=== PATIENT | female | born 1970 | race Caucasian/White ===

== ENCOUNTER 2019-08-27 10:28 | Inpatient (IN) ==
[2019-08-27] MEDS ORDERED: CeFAZolin Syr 2,000MG/20 ML 2,000 MG/20 ML SYRINGE IVPB ONE (10:48)
[2019-08-27] MEDS ORDERED: Ringers Solution, Lactated 1,000 ML IVC SCH ×2 (11:00→17:24)
[2019-08-27] MEDS ORDERED: *HR* Labetalol 20 MG/4 ML SYRINGE IVP PRN (11:06)
[2019-08-27] MEDS ORDERED: *HR* HYDROmorphone PF 0.5 MG/0.5 ML SYRINGE IVP PRN (11:06)
[2019-08-27] MEDS ORDERED: Ondansetron 4 MG/2 ML VIAL IVP PRN ×2 (11:06→17:24)
[2019-08-27] MEDS ORDERED: Famotidine 20 MG/2 ML VIAL IVP ONE (13:15)
[2019-08-27] MEDS ORDERED: Celecoxib 200 MG CAPSULE PO ONE (13:15)
[2019-08-27] MEDS ORDERED: *HR* OxyCODONE ER (12 HR) 10 MG TABLET PO ONE (13:15)
[2019-08-27] MEDS ORDERED: Ethanol\\Acetic Acid\\Na Ace\\Ben 1,000 ML IRRIG.SOLN IR ONE ×2 (13:20→13:28)
[2019-08-27] MEDS ORDERED: Vancomycin 1,000 MG VIAL ONE (13:20)
[2019-08-27] MEDS ORDERED: *HR* FentaNYL (PF) 100 MCG/2 ML VIAL ONE (13:57)
[2019-08-27] MEDS ORDERED: *HR* Midazolam HCl 2 MG/2 ML VIAL ONE (13:57)
[2019-08-27] MEDS ORDERED: Lidocaine -MPF 2% 2 ML VIAL ONE (14:27)
[2019-08-27] MEDS ORDERED: *HR* Propofol 200 MG/20 ML VIAL IVP ONE (14:27)
[2019-08-27] MEDS ORDERED: Lidocaine -MPF 4% 5 ML AMPUL ONE (14:27)
[2019-08-27] MEDS ORDERED: EPHEDrine 50 MG/ML VIAL ONE (14:38)
[2019-08-27] MEDS ORDERED: Dexamethasone 4 MG/ML VIAL ONE (14:39)
[2019-08-27] MEDS ORDERED: Ondansetron 4 MG/2 ML VIAL ONE (14:39)
[2019-08-27] MEDS ORDERED: *HR* PHENYLEPHRINE 1,000 MCG/10 ML SYRINGE IVP ONE (14:50)
[2019-08-27] MEDS ORDERED: Total Joint Mixture (50 ml) INTRAART ONE (15:15)
[2019-08-27] MEDS ORDERED: Naloxone 0.4 MG/ML INJ IVP PRN (17:24)
[2019-08-27] MEDS ORDERED: Sennosides 8.6 MG TABLET PO PRN (17:24)
[2019-08-27] MEDS ORDERED: MOM Conc 10 ML UD.LIQ PO PRN (17:24)
[2019-08-27] MEDS ORDERED: SUMAtriptan succinate 25 MG TABLET PO PRN (17:24)
[2019-08-27] MEDS ORDERED: D5% in Water 1,000 ML IVC PRN (17:24)
[2019-08-27] MEDS ORDERED: *HR* Promethazine 25 MG/ML VIAL IVP PRN (17:24)
[2019-08-27] MEDS ORDERED: *HR* Dextrose 50 % in Water (Vial) 50 ML VIAL IVP PRN (17:24)
[2019-08-27] MEDS ORDERED: Dextrose Gel 15 GM/37.5 ML TUBE PO PRN ×2 (17:24)
[2019-08-27 17:34] LABS: Hematocrit 41.7 % (35.3-44.9); Hemoglobin 13.1 g/dL (11.5-15.4)
[2019-08-27] MEDS: Ascorbic Acid 500 MG TABLET PO SCH (18:49)
[2019-08-27] MEDS: *HR* OxyCODONE Immed Rel 5 MG TABLET PO PRN (18:50)
[2019-08-27] MEDS: Insulin LISPRO 300 UNITS/3 ML VIAL SQ SCH ×2 (18:56→21:14)
[2019-08-27] MEDS: HYDROcodone BIT/Homatropine 5 MG TABLET PO PRN (21:12)
[2019-08-27] MEDS: lamoTRIgine 100 MG TABLET PO SCH (21:13)
[2019-08-27] MEDS: CeFAZolin 2 GM/120 ML BAG IVPB SCH (21:13)
[2019-08-28] MEDS: CeFAZolin 2 GM/120 ML BAG IVPB SCH (05:45)
[2019-08-28] MEDS: *HR* OxyCODONE Immed Rel 5 MG TABLET PO PRN ×2 (05:45→20:55)
[2019-08-28 06:53] LABS: Basophils % 0.3 %; Hematocrit 38.5 % (35.3-44.9); Hemoglobin 11.9 g/dL (11.5-15.4); Immature Granulocytes % 0.4 % (0-4); Lymphocytes # 0.6 K/mcL (0.6-4.6); Lymphocytes % 3.8 %; Mean Corpuscular HGB Conc 30.9 g/dL (31.6-35.5); Mean Corpuscular Hemoglobin 30.2 pg (28.0-33.3); Mean Corpuscular Volume 97.7 fL (83.0-100.0); Mean Platelet Volume 10.3 fL (9.4-12.4); Monocytes # 0.9 K/mcL (0.0-1.3); Monocytes % 5.5 %; Neutrophils # 14.3 K/mcL (1.6-8.9); Platelet Count 225 K/mcL (140-400); Red Blood Count 3.94 M/mcL (3.82-4.97); White Blood Count 15.9 K/mcL (4.3-11.1)
[2019-08-28 07:13] LABS: BUN/Creatinine Ratio 18 (6-26); Blood Urea Nitrogen 13 mg/dL (6-20); Calcium 8.7 mg/dL (8.6-10.3); Carbon Dioxide 26 mEq/L (23-29); Chloride 102 mEq/L (98-107); Glucose 129 mg/dL (70-105); Osmolality,Calculated 280 (280-300); Potassium 4.3 mEq/L (3.5-5.1); Sodium 134 mEq/L (136-145); eGFR For African Americans > 60 (> 60); eGFR For Non-African Americans > 60 (> 60)
[2019-08-28] MEDS: lamoTRIgine 100 MG TABLET PO SCH ×2 (08:21→20:55)
[2019-08-28] MEDS: Ascorbic Acid 500 MG TABLET PO SCH ×2 (08:21→16:14)
[2019-08-28] MEDS: Multivit/Ca/Min/Fe/FA 1 TAB TABLET PO SCH (08:23)
[2019-08-28] MEDS: Aspirin Enteric Coated 81 MG Tablet PO SCH (08:24)
[2019-08-28] MEDS: Furosemide 20 MG TABLET PO SCH (08:24)
[2019-08-28] MEDS: Loratadine 10 MG TABLET PO SCH (08:25)
[2019-08-28] MEDS: FLUoxetine HCl 10 MG CAPSULE PO SCH (08:27)
[2019-08-28] MEDS: Mirabegron [Myrbetriq] 50 MG PO SCH (08:31)
[2019-08-28] MEDS: Armodafinil [Nuvigil] 200 MG PO SCH (08:31)
[2019-08-28] MEDS: Insulin LISPRO 300 UNITS/3 ML VIAL SQ SCH ×4 (08:39→20:51)
[2019-08-28] MEDS ORDERED: Aspirin Enteric Coated 81 MG Tablet PO SCH (09:00)
[2019-08-28] MEDS: Valbenazine Tosylate [Ingrezza] 80 MG PO SCH (11:40)
[2019-08-28] MEDS: HYDROcodone BIT/Homatropine 5 MG TABLET PO PRN ×2 (11:44→16:15)
[2019-08-28] MEDS: Vortioxetine Hydrobromide [Trintellix] 20 MG PO SCH (12:01)
[2019-08-29] MEDS: *HR* OxyCODONE Immed Rel 5 MG TABLET PO PRN ×3 (03:07→17:01)
[2019-08-29 07:03] LABS: Basophils # 0.1 K/mcL (0.0-0.2); Basophils % 0.8 %; Eosinophils # 0.1 K/mcL (0.0-0.6); Eosinophils % 1.6 %; Hematocrit 34.2 % (35.3-44.9); Hemoglobin 10.7 g/dL (11.5-15.4); Immature Granulocytes % 1.7 % (0-4); Lymphocytes # 1.4 K/mcL (0.6-4.6); Lymphocytes % 15.2 %; Mean Corpuscular HGB Conc 31.3 g/dL (31.6-35.5); Mean Corpuscular Hemoglobin 30.1 pg (28.0-33.3); Mean Corpuscular Volume 96.1 fL (83.0-100.0); Mean Platelet Volume 10.2 fL (9.4-12.4); Monocytes # 0.9 K/mcL (0.0-1.3); Monocytes % 10.2 %; Neutrophils # 6.4 K/mcL (1.6-8.9); Platelet Count 183 K/mcL (140-400); Red Blood Count 3.56 M/mcL (3.82-4.97); Red Cell Distribution Width 14.3 % (11.5-14.5); Segmented Neutrophils % 70.5 %
[2019-08-29 07:28] LABS: BUN/Creatinine Ratio 16 (6-26); Blood Urea Nitrogen 11 mg/dL (6-20); Calcium 8.7 mg/dL (8.6-10.3); Carbon Dioxide 26 mEq/L (23-29); Chloride 104 mEq/L (98-107); Glucose 107 mg/dL (70-105); Osmolality,Calculated 282 (280-300); Potassium 3.7 mEq/L (3.5-5.1); Sodium 136 mEq/L (136-145); eGFR For African Americans > 60 (> 60); eGFR For Non-African Americans > 60 (> 60)
[2019-08-29] MEDS: Insulin LISPRO 300 UNITS/3 ML VIAL SQ SCH ×4 (08:08→20:35)
[2019-08-29] MEDS: Aspirin Enteric Coated 81 MG Tablet PO SCH (08:24)
[2019-08-29] MEDS: Ascorbic Acid 500 MG TABLET PO SCH ×2 (08:24→16:06)
[2019-08-29] MEDS: lamoTRIgine 100 MG TABLET PO SCH ×2 (08:26→20:17)
[2019-08-29] MEDS: Multivit/Ca/Min/Fe/FA 1 TAB TABLET PO SCH (08:27)
[2019-08-29] MEDS: Armodafinil [Nuvigil] 200 MG PO SCH (08:28)
[2019-08-29] MEDS: Furosemide 20 MG TABLET PO SCH (08:28)
[2019-08-29] MEDS: Loratadine 10 MG TABLET PO SCH (08:28)
[2019-08-29] MEDS: Mirabegron [Myrbetriq] 50 MG PO SCH (08:28)
[2019-08-29] MEDS: FLUoxetine HCl 10 MG CAPSULE PO SCH (08:28)
[2019-08-29] MEDS: Valbenazine Tosylate [Ingrezza] 80 MG PO SCH (08:29)
[2019-08-29] MEDS: Vortioxetine Hydrobromide [Trintellix] 20 MG PO SCH (08:29)
[2019-08-29] MEDS: HYDROcodone BIT/Homatropine 5 MG TABLET PO PRN ×2 (10:36→20:16)
[2019-08-29 18:51] VITALS: BP 112/63
== END 2019-08-29 22:15 | DRG 468 ==
LOC: SAMDAY 10:28 → 3NENU 10:28 → OBSVTOIN 08-28 14:45
PROVIDERS: ADMIT Orthopaedic Surgery; ATTEND Orthopaedic Surgery

== ENCOUNTER 2020-03-13 14:44 | Inpatient (IN) ==
[2020-03-13] MEDS ORDERED: Ondansetron 4 MG/2 ML VIAL IVP PRN (18:26)
[2020-03-13] MEDS ORDERED: Naloxone 0.4 MG/ML INJ IVP PRN (18:26)
[2020-03-13] MEDS ORDERED: Acetaminophen 325 MG TABLET PO PRN (18:26)
[2020-03-13] MEDS ORDERED: *HR* HYDROcodone/Acet 5/325 mg TABLET PO PRN (20:15)
[2020-03-13] MEDS: tiZANidine 4 MG TABLET PO SCH (21:48)
[2020-03-13] MEDS: lamoTRIgine 100 MG TABLET PO SCH (21:48)
[2020-03-14 03:38] LABS: Basophils # 0.1 K/mcL (0.0-0.2); Basophils % 1.5 %; Hematocrit 27.4 % (35.3-44.9); Hemoglobin 8.8 g/dL (11.5-15.4); Immature Granulocytes % 7.9 % (0-4); Lymphocytes # 0.5 K/mcL (0.6-4.6); Lymphocytes % 16.4 %; Mean Corpuscular HGB Conc 32.1 g/dL (31.6-35.5); Mean Corpuscular Hemoglobin 34.4 pg (28.0-33.3); Mean Platelet Volume 9.5 fL (9.4-12.4); Monocytes # 0.3 K/mcL (0.0-1.3); Monocytes % 8.2 %; Neutrophils # 2.2 K/mcL (1.6-8.9); Nucleated Red Blood Cells 1.5 /100 WBC (0); Platelet Count 137 K/mcL (140-400); Red Blood Count 2.56 M/mcL (3.82-4.97); Red Cell Distribution Width 15.9 % (11.5-14.5); White Blood Count 3.3 K/mcL (4.3-11.1)
[2020-03-14 04:11] LABS: BUN/Creatinine Ratio 38 (6-26); Blood Urea Nitrogen 13 mg/dL (6-20); Calcium 8.5 mg/dL (8.6-10.3); Carbon Dioxide 26 mEq/L (23-29); Chloride 98 mEq/L (98-107); Glucose 84 mg/dL (70-105); Magnesium 1.8 mg/dL (1.6-2.6); Osmolality,Calculated 277 (280-300); Potassium 4.3 mEq/L (3.5-5.1); Sodium 134 mEq/L (136-145); eGFR For African Americans > 60 (> 60); eGFR For Non-African Americans > 60 (> 60)
[2020-03-14 04:13] LABS: Platelet Estimate Slight Decrease (Normal); Smudge Cells Present (Not Present)
[2020-03-14] MEDS: FLUoxetine 20 MG CAPSULE PO SCH (09:06)
[2020-03-14] MEDS: lamoTRIgine 100 MG TABLET PO SCH ×2 (09:07→22:32)
[2020-03-14] MEDS: tiZANidine 4 MG TABLET PO SCH ×3 (09:07→22:33)
[2020-03-14] MEDS: Furosemide 20 MG TABLET PO SCH (09:07)
[2020-03-14] MEDS: ARMODAFINIL 150 MG PO SCH (09:10)
[2020-03-14] MEDS: (Valbenazine Tosylate [Ingrezza] 80 MG) PO SCH (09:10)
[2020-03-14] MEDS ORDERED: Gadolinium Contrast Agent (WT Based) IV PRN (10:11)
[2020-03-14] MEDS: Cyanocobalamin (B-12) 1,000 MCG/ML VIAL IM SCH (10:52)
[2020-03-14 14:30] LABS: Red Blood Cell,CSF < 2000 RBC/mcL
[2020-03-14 14:31] LABS: Appearance,CSF Clear (Clear)
[2020-03-14 15:02] LABS: Glucose,CSF 53 mg/dL (40-70); Total Protein,CSF 55 mg/dL (15-45)
[2020-03-14] MEDS ORDERED: IVIG (wt based) Privigen 5 GM/50 ML INFUS..BTL IVC ONE (15:34)
[2020-03-14] MEDS ORDERED: Immune Glob, Gamma (Gammagard) 10 GM/100 ML INFUS..BTL IVC ONE (15:45)
[2020-03-14] MEDS ORDERED: Immune Glob, Gamma (Gammagard) 5 GM/50 ML INFUS..BTL IVC ONE (15:45)
[2020-03-14] MEDS ORDERED: Immune Glob, Gamma (Gammagard) 20 GM/200 ML INFUS..BTL IVC ONE (15:45)
[2020-03-14] MEDS: Immune Glob, Gamma (Gammagard) 5 GM/50 ML INFUS..BTL IVC SCH (17:19)
[2020-03-14] MEDS: Immune Glob, Gamma (Gammagard) 10 GM/100 ML INFUS..BTL IVC SCH (17:45)
[2020-03-14] MEDS: Immune Glob, Gamma (Gammagard) 20 GM/200 ML INFUS..BTL IVC SCH (18:09)
[2020-03-14] MEDS ORDERED: Furosemide 40 MG/4 ML VIAL IVP ONE (20:57)
[2020-03-15 07:24] LABS: Basophils # 0.1 K/mcL (0.0-0.2); Eosinophils % 0.3 %; Hemoglobin 8.5 g/dL (11.5-15.4); Lymphocytes # 0.6 K/mcL (0.6-4.6); Lymphocytes % 19.7 %; Mean Corpuscular HGB Conc 31.5 g/dL (31.6-35.5); Mean Corpuscular Hemoglobin 33.2 pg (28.0-33.3); Mean Corpuscular Volume 105.5 fL (83.0-100.0); Mean Platelet Volume 9.3 fL (9.4-12.4); Monocytes # 0.2 K/mcL (0.0-1.3); Monocytes % 5.7 %; Neutrophils # 1.9 K/mcL (1.6-8.9); Nucleated Red Blood Cells 1.7 /100 WBC (0); Platelet Count 134 K/mcL (140-400); Red Blood Count 2.56 M/mcL (3.82-4.97); Segmented Neutrophils % 62.3 %
[2020-03-15 07:43] LABS: % Iron Saturation 32 % (15-50); BUN/Creatinine Ratio 45 (6-26); Blood Urea Nitrogen 14 mg/dL (6-20); Calcium 8.3 mg/dL (8.6-10.3); Carbon Dioxide 26 mEq/L (23-29); Chloride 98 mEq/L (98-107); Glucose 82 mg/dL (70-105); Iron 40 mcg/dL (50-170); Magnesium 1.7 mg/dL (1.6-2.6); Osmolality,Calculated 280 (280-300); Potassium 3.5 mEq/L (3.5-5.1); Sodium 135 mEq/L (136-145); Transferrin 88 mg/dL (203-362); eGFR For African Americans > 60 (> 60); eGFR For Non-African Americans > 60 (> 60)
[2020-03-15 07:53] LABS: Thyroid Stimulating Hormone 10.281 mcIU/mL (0.340-5.600)
[2020-03-15 07:59] LABS: Ferritin 1055 ng/mL (10-120)
[2020-03-15 08:08] LABS: Platelet Estimate Normal (Normal); Toxic Granulation Present (Not Present)
[2020-03-15 08:48] LABS: Vitamin B12 > 1500 pg/mL (250-1100)
[2020-03-15] MEDS: tiZANidine 4 MG TABLET PO SCH (10:15)
[2020-03-15] MEDS: Furosemide 20 MG TABLET PO SCH (10:16)
[2020-03-15] MEDS: lamoTRIgine 100 MG TABLET PO SCH ×2 (10:16→20:17)
[2020-03-15] MEDS: FLUoxetine 20 MG CAPSULE PO SCH (10:16)
[2020-03-15] MEDS: Cyanocobalamin (B-12) 1,000 MCG/ML VIAL IM SCH (10:17)
[2020-03-15] MEDS: (Valbenazine Tosylate [Ingrezza] 80 MG) PO SCH (11:11)
[2020-03-15] MEDS: ARMODAFINIL 150 MG PO SCH (11:11)
[2020-03-15] MEDS ORDERED: 0.9 % Sodium Chloride 1,000 ML IVC ONE (16:12)
[2020-03-15] MEDS: Immune Glob, Gamma (Gammagard) 20 GM/200 ML INFUS..BTL IVC SCH (17:48)
[2020-03-15] MEDS: Immune Glob, Gamma (Gammagard) 10 GM/100 ML INFUS..BTL IVC SCH (19:55)
[2020-03-15] MEDS: Sennosides/Docusate Sodium TABLET PO SCH (20:17)
[2020-03-15] MEDS: Immune Glob, Gamma (Gammagard) 5 GM/50 ML INFUS..BTL IVC SCH (20:55)
[2020-03-15] MEDS: Folic Acid 1 MG TABLET PO SCH (21:02)
[2020-03-16 01:45] LABS: Basophils # 0.1 K/mcL (0.0-0.2); Basophils % 1.7 %; Eosinophils % 0.3 %; Hematocrit 26.6 % (35.3-44.9); Hemoglobin 8.6 g/dL (11.5-15.4); Immature Granulocytes % 9.3 % (0-4); Lymphocytes # 0.5 K/mcL (0.6-4.6); Lymphocytes % 13.6 %; Mean Corpuscular HGB Conc 32.3 g/dL (31.6-35.5); Mean Corpuscular Hemoglobin 34.1 pg (28.0-33.3); Mean Corpuscular Volume 105.6 fL (83.0-100.0); Mean Platelet Volume 9.5 fL (9.4-12.4); Monocytes # 0.2 K/mcL (0.0-1.3); Monocytes % 5.8 %; Neutrophils # 2.4 K/mcL (1.6-8.9); Nucleated Red Blood Cells 1.2 /100 WBC (0); Platelet Count 143 K/mcL (140-400); Red Blood Count 2.52 M/mcL (3.82-4.97); Red Cell Distribution Width 15.9 % (11.5-14.5); Segmented Neutrophils % 69.3 %; White Blood Count 3.5 K/mcL (4.3-11.1)
[2020-03-16 02:03] LABS: BUN/Creatinine Ratio 52 (6-26); Blood Urea Nitrogen 15 mg/dL (6-20); Calcium 8.2 mg/dL (8.6-10.3); Carbon Dioxide 24 mEq/L (23-29); Chloride 96 mEq/L (98-107); Glucose 69 mg/dL (70-105); Magnesium 1.5 mg/dL (1.6-2.6); Osmolality,Calculated 273 (280-300); Potassium 3.7 mEq/L (3.5-5.1); Sodium 132 mEq/L (136-145); eGFR For African Americans > 60 (> 60); eGFR For Non-African Americans > 60 (> 60)
[2020-03-16 02:18] LABS: Triiodothyronine (T3) Free 2.16 pg/mL (2.50-3.90)
[2020-03-16 03:18] LABS: Platelet Estimate Normal (Normal)
[2020-03-16] MEDS: Ondansetron 4 MG/2 ML VIAL IVP PRN ×3 (04:16→23:05)
[2020-03-16] MEDS ORDERED: Dextrose 4 GM Chewable Tablets PO ONE (08:01)
[2020-03-16] MEDS ORDERED: Dextrose Gel 15 GM/37.5 ML TUBE PO ONE (08:15)
[2020-03-16] MEDS: lamoTRIgine 100 MG TABLET PO SCH ×2 (08:38→22:40)
[2020-03-16] MEDS: Folic Acid 1 MG TABLET PO SCH (08:38)
[2020-03-16] MEDS: Sennosides/Docusate Sodium TABLET PO SCH ×2 (08:38→22:40)
[2020-03-16] MEDS: FLUoxetine 20 MG CAPSULE PO SCH (08:38)
[2020-03-16] MEDS: Furosemide 20 MG TABLET PO SCH (08:41)
[2020-03-16] MEDS: ARMODAFINIL 150 MG PO SCH (08:42)
[2020-03-16] MEDS ORDERED: *HR* Promethazine 25 MG/ML VIAL IM ONE (08:42)
[2020-03-16] MEDS: (Valbenazine Tosylate [Ingrezza] 80 MG) PO SCH (08:42)
[2020-03-16] MEDS: Immune Glob, Gamma (Gammagard) 5 GM/50 ML INFUS..BTL IVC SCH (16:08)
[2020-03-16] MEDS: Immune Glob, Gamma (Gammagard) 10 GM/100 ML INFUS..BTL IVC SCH (17:03)
[2020-03-16] MEDS: Immune Glob, Gamma (Gammagard) 20 GM/200 ML INFUS..BTL IVC SCH (17:54)
[2020-03-17] MEDS ORDERED: tiZANidine 4 MG TABLET PO PRN (09:00)
[2020-03-17] MEDS: lamoTRIgine 100 MG TABLET PO SCH ×2 (09:39→19:56)
[2020-03-17] MEDS: Furosemide 20 MG TABLET PO SCH (09:39)
[2020-03-17] MEDS: Folic Acid 1 MG TABLET PO SCH (09:39)
[2020-03-17] MEDS: Sennosides/Docusate Sodium TABLET PO SCH ×2 (09:39→19:55)
[2020-03-17] MEDS: (Valbenazine Tosylate [Ingrezza] 80 MG) PO SCH (09:40)
[2020-03-17] MEDS: ARMODAFINIL 150 MG PO SCH (09:40)
[2020-03-17] MEDS: FLUoxetine 20 MG CAPSULE PO SCH (09:40)
[2020-03-17] MEDS: Ondansetron 4 MG/2 ML VIAL IVP PRN (09:43)
[2020-03-17] MEDS ORDERED: Milk and Molasses Enema 200 ML RC ONE ×2 (13:31→19:54)
[2020-03-17] MEDS: Immune Glob, Gamma (Gammagard) 5 GM/50 ML INFUS..BTL IVC SCH (16:08)
[2020-03-17] MEDS: Immune Glob, Gamma (Gammagard) 10 GM/100 ML INFUS..BTL IVC SCH (16:59)
[2020-03-17] MEDS: Immune Glob, Gamma (Gammagard) 20 GM/200 ML INFUS..BTL IVC SCH (17:53)
[2020-03-17 18:22] LABS: Thyroglobulin Antibody 46.7 IU/mL (0.0-4.0)
[2020-03-18] MEDS: Ondansetron 4 MG/2 ML VIAL IVP PRN (10:05)
[2020-03-18] MEDS: ARMODAFINIL 150 MG PO SCH (10:59)
[2020-03-18] MEDS: Furosemide 20 MG TABLET PO SCH (10:59)
[2020-03-18] MEDS: lamoTRIgine 100 MG TABLET PO SCH ×2 (10:59→20:39)
[2020-03-18] MEDS: FLUoxetine 20 MG CAPSULE PO SCH (10:59)
[2020-03-18] MEDS: (Valbenazine Tosylate [Ingrezza] 80 MG) PO SCH (10:59)
[2020-03-18] MEDS: Folic Acid 1 MG TABLET PO SCH (10:59)
[2020-03-18] MEDS ORDERED: Milk and Molasses Enema 200 ML RC ONE (11:01)
[2020-03-18] MEDS: Immune Glob, Gamma (Gammagard) 5 GM/50 ML INFUS..BTL IVC SCH (15:47)
[2020-03-18] MEDS: Immune Glob, Gamma (Gammagard) 10 GM/100 ML INFUS..BTL IVC SCH (17:02)
[2020-03-18] MEDS: Immune Glob, Gamma (Gammagard) 20 GM/200 ML INFUS..BTL IVC SCH (17:57)
[2020-03-19] MEDS: ARMODAFINIL 150 MG PO SCH (08:59)
[2020-03-19] MEDS: (Valbenazine Tosylate [Ingrezza] 80 MG) PO SCH (08:59)
[2020-03-19 09:13] LABS: ABG Base Excess 1 mEq/L (-2 to 3); ABG HCO3 26 mEq/L (21-27); ABG Oxygen Saturation 94 % (95-98); ABG PCO2 39 mmHg (35-45); ABG PH 7.43 pH Units (7.32-7.45); ABG PO2 67 mmHg (85-104); ABG TCO2 27 mEq/L (20-26)
[2020-03-19 09:19] LABS: Hematocrit 29.3 % (35.3-44.9); Hemoglobin 9.2 g/dL (11.5-15.4); Mean Corpuscular HGB Conc 31.4 g/dL (31.6-35.5); Mean Corpuscular Hemoglobin 33.8 pg (28.0-33.3); Mean Corpuscular Volume 107.7 fL (83.0-100.0); Mean Platelet Volume 9.4 fL (9.4-12.4); Nucleated Red Blood Cells 0.6 /100 WBC (0); Platelet Count 159 K/mcL (140-400); Red Blood Count 2.72 M/mcL (3.82-4.97); White Blood Count 4.8 K/mcL (4.3-11.1)
[2020-03-19 09:47] LABS: Alanine Aminotransferase 145 Units/L (7-52); Albumin 2.6 g/dL (3.5-5.7); Albumin/Globulin Ratio 0.6 (1.1-2.2); Alkaline Phosphatase 46 Units/L (34-104); Aspartate Amino Transferase 150 Units/L (13-39); BUN/Creatinine Ratio 58 (6-26); Bilirubin,Total 0.3 mg/dL (0.3-1.0); Blood Urea Nitrogen 15 mg/dL (6-20); Calcium 8.4 mg/dL (8.6-10.3); Carbon Dioxide 27 mEq/L (23-29); Chloride 99 mEq/L (98-107); Globulin 4.6 g/dL (2.4-3.5); Glucose 85 mg/dL (70-105); Osmolality,Calculated 282 (280-300); Potassium 3.3 mEq/L (3.5-5.1); Sodium 136 mEq/L (136-145); Total Protein 7.2 g/dL (6.4-8.9); eGFR For African Americans > 60 (> 60); eGFR For Non-African Americans > 60 (> 60)
[2020-03-19 09:57] LABS: Neutrophils # 3.7 K/mcL (1.6-8.9)
[2020-03-19 09:59] LABS: Lymphocytes # 0.3 K/mcL (0.6-4.6); Monocytes # 0.4 K/mcL (0.0-1.3); Platelet Estimate Normal (Normal)
[2020-03-19 10:25] LABS: Adenovirus Not Detected (Not Detect); Bordetella Pertussis Not Detected (Not Detect); Chlamydophila pneumoniae Not Detected (Not Detect); Coronavirus 229E Not Detected (Not Detect); Coronavirus HKU1 Not Detected (Not Detect); Coronavirus NL63 Not Detected (Not Detect); Coronavirus OC43 Not Detected (Not Detect); Human Metapneumovirus Not Detected (Not Detect); Human Rhinovirus/Enterovirus Not Detected (Not Detect); Influenza A Subtype 2009 H1 Not Detected (Not Detect); Influenza B Not Detected (Not Detect); Mycoplasma pneumoniae Not Detected (Not Detect); Parainfluenza Virus 1 Not Detected (Not Detect); Parainfluenza Virus 2 Not Detected (Not Detect); Parainfluenza Virus 3 Not Detected (Not Detect); Parainfluenza Virus 4 Not Detected (Not Detect); Respiratory Syncytial Virus Not Detected (Not Detect); SARS-CoV-2 Not Detected (Not Detect)
[2020-03-19 11:14] LABS: Bilirubin,Urine Small (Negative); Blood,Urine Large (Negative); Clarity,Urine Clear (Clear); Color,Urine Yellow (Yellow); Glucose,Urine (UA) Normal (Normal); Ketones,Urine 100 mg/dL (Negative); Leukocyte Esterase,Urine Negative (Negative); Mucus,Urine Many per lpf (None-Few); Nitrite,Urine Negative (Negative); PH,Urine 6.5 pH Units (5.0-8.0); Protein,Urine 100 mg/dL (Neg-Trace); RBC,Urine 0-3 per hpf (0-3); Squamous Epithelial Cell,Urine Few per hpf (None-Few); Urobilinogen,Urine Normal (Normal); WBC,Urine 0-3 per hpf (0-3)
[2020-03-19] MEDS: Ondansetron 4 MG/2 ML VIAL IVP PRN (11:51)
[2020-03-19] MEDS: Folic Acid 1 MG TABLET PO SCH (15:37)
[2020-03-19] MEDS: Furosemide 20 MG TABLET PO SCH (15:37)
[2020-03-19] MEDS: lamoTRIgine 100 MG TABLET PO SCH ×2 (15:37→20:56)
[2020-03-19] MEDS: FLUoxetine 20 MG CAPSULE PO SCH (15:38)
[2020-03-19] MEDS ORDERED: Potassium Chloride 20 MEQ, Lidocaine 1% 2 ML in 0.9 % Sodium Chloride 250 ML IVPB ONE (17:47)
[2020-03-19] MEDS: 0.9 % Sodium Chloride 1,000 ML IVC SCH (18:32)
[2020-03-19 19:34] LABS: INR 1.9; Prothrombin Time 21.2 Seconds (9.4-12.1)
[2020-03-19 20:18] LABS: Hepatitis B Surface Antigen Nonreactive (Nonreactive)
[2020-03-19 20:49] LABS: Hepatitis A Antibody IgM Nonreactive (Nonreactive)
[2020-03-19 20:50] LABS: Hepatitis C Virus Antibody Nonreactive (Nonreactive)
[2020-03-19 20:51] LABS: Hepatitis B Core IgM Nonreactive (Nonreactive)
[2020-03-20] MEDS: Ondansetron 4 MG/2 ML VIAL IVP PRN ×2 (02:31→13:44)
[2020-03-20] MEDS: Pantoprazole 40 MG VIAL IVP SCH ×2 (05:27→07:51)
[2020-03-20 06:02] LABS: Hematocrit 29.5 % (35.3-44.9); Hemoglobin 9.2 g/dL (11.5-15.4); Mean Corpuscular HGB Conc 31.2 g/dL (31.6-35.5); Mean Corpuscular Hemoglobin 34.2 pg (28.0-33.3); Mean Corpuscular Volume 109.7 fL (83.0-100.0); Mean Platelet Volume 9.9 fL (9.4-12.4); Platelet Count 156 K/mcL (140-400); Red Blood Count 2.69 M/mcL (3.82-4.97)
[2020-03-20 06:17] LABS: Alanine Aminotransferase 134 Units/L (7-52); Albumin 2.6 g/dL (3.5-5.7); Albumin/Globulin Ratio 0.6 (1.1-2.2); Alkaline Phosphatase 43 Units/L (34-104); Aspartate Amino Transferase 123 Units/L (13-39); BUN/Creatinine Ratio 57 (6-26); Bilirubin,Total 0.3 mg/dL (0.3-1.0); Blood Urea Nitrogen 16 mg/dL (6-20); Calcium 8.2 mg/dL (8.6-10.3); Carbon Dioxide 27 mEq/L (23-29); Chloride 100 mEq/L (98-107); Globulin 4.2 g/dL (2.4-3.5); Glucose 81 mg/dL (70-105); Magnesium 1.9 mg/dL (1.6-2.6); Osmolality,Calculated 282 (280-300); Potassium 3.5 mEq/L (3.5-5.1); Sodium 136 mEq/L (136-145); Total Protein 6.8 g/dL (6.4-8.9); eGFR For African Americans > 60 (> 60); eGFR For Non-African Americans > 60 (> 60)
[2020-03-20] MEDS: ARMODAFINIL 150 MG PO SCH (07:50)
[2020-03-20] MEDS: Folic Acid 1 MG TABLET PO SCH (07:50)
[2020-03-20] MEDS: lamoTRIgine 100 MG TABLET PO SCH ×2 (07:50→21:45)
[2020-03-20] MEDS: Furosemide 20 MG TABLET PO SCH (07:50)
[2020-03-20] MEDS: (Valbenazine Tosylate [Ingrezza] 80 MG) PO SCH (07:51)
[2020-03-20] MEDS: FLUoxetine 20 MG CAPSULE PO SCH (07:51)
[2020-03-20] MEDS ORDERED: Pantoprazole 40 MG VIAL IVP SCH (09:00)
[2020-03-20] MEDS ORDERED: Metoclopramide 10 MG/2 ML VIAL IVP ONE (15:53)
[2020-03-20] MEDS: 0.9 % Sodium Chloride 1,000 ML IVC SCH (16:20)
[2020-03-21 06:39] LABS: Hemoglobin 9.7 g/dL (11.5-15.4); Mean Corpuscular Volume 108.4 fL (83.0-100.0); Red Cell Distribution Width 16.1 % (11.5-14.5)
[2020-03-21 06:40] LABS: Hematocrit 30.9 % (35.3-44.9); Mean Corpuscular HGB Conc 31.4 g/dL (31.6-35.5); Mean Platelet Volume 10.5 fL (9.4-12.4); Platelet Count 129 K/mcL (140-400); Red Blood Count 2.85 M/mcL (3.82-4.97); White Blood Count 5.6 K/mcL (4.3-11.1)
[2020-03-21 06:55] LABS: Alanine Aminotransferase 126 Units/L (7-52); Albumin 2.6 g/dL (3.5-5.7); Albumin/Globulin Ratio 0.7 (1.1-2.2); Alkaline Phosphatase 41 Units/L (34-104); Aspartate Amino Transferase 130 Units/L (13-39); BUN/Creatinine Ratio 54 (6-26); Bilirubin,Total 0.3 mg/dL (0.3-1.0); Blood Urea Nitrogen 14 mg/dL (6-20); Calcium 8.1 mg/dL (8.6-10.3); Carbon Dioxide 24 mEq/L (23-29); Chloride 102 mEq/L (98-107); Globulin 3.8 g/dL (2.4-3.5); Glucose 76 mg/dL (70-105); Osmolality,Calculated 283 (280-300); Potassium 3.5 mEq/L (3.5-5.1); Sodium 137 mEq/L (136-145); Total Protein 6.4 g/dL (6.4-8.9); eGFR For African Americans > 60 (> 60); eGFR For Non-African Americans > 60 (> 60)
[2020-03-21] MEDS: Pantoprazole 40 MG VIAL IVP SCH (07:22)
[2020-03-21] MEDS: 0.9 % Sodium Chloride 1,000 ML IVC SCH ×2 (07:29→23:32)
[2020-03-21] MEDS: FLUoxetine 20 MG CAPSULE PO SCH (07:33)
[2020-03-21] MEDS: Furosemide 20 MG TABLET PO SCH (07:33)
[2020-03-21] MEDS: (Valbenazine Tosylate [Ingrezza] 80 MG) PO SCH (07:33)
[2020-03-21] MEDS: Folic Acid 1 MG TABLET PO SCH (07:33)
[2020-03-21] MEDS: lamoTRIgine 100 MG TABLET PO SCH ×2 (07:33→23:33)
[2020-03-21] MEDS: ARMODAFINIL 150 MG PO SCH (07:33)
[2020-03-21] MEDS ORDERED: Lidocaine -MPF 4% 5 ML AMPUL TP ONE (17:38)
[2020-03-21] MEDS ORDERED: *HR* Propofol 200 MG/20 ML VIAL IVP ONE (17:38)
[2020-03-21 19:50] LABS: Hemoglobin 9.6 g/dL (11.5-15.4); Mean Corpuscular Volume 106.4 fL (83.0-100.0); Mean Platelet Volume 9.8 fL (9.4-12.4); Nucleated Red Blood Cells 0.8 /100 WBC (0); Platelet Count 150 K/mcL (140-400); Red Blood Count 2.82 M/mcL (3.82-4.97); Red Cell Distribution Width 16.1 % (11.5-14.5); White Blood Count 5.1 K/mcL (4.3-11.1)
[2020-03-21 20:20] LABS: Eosinophils # 0.1 K/mcL (0.0-0.6); Lymphocytes # 0.4 K/mcL (0.6-4.6); Monocytes # 0.3 K/mcL (0.0-1.3); Neutrophils # 4.3 K/mcL (1.6-8.9); Toxic Granulation Present (Not Present)
[2020-03-21 20:21] LABS: Anisocytosis 1+ (Not Present); Platelet Estimate Normal (Normal)
[2020-03-21] MEDS: levoFLOXacin 750 MG/150 ML 750 MG/150 ML BAG IVPB SCH (23:32)
[2020-03-22 00:35] LABS: Hematocrit 28.9 % (35.3-44.9); Hemoglobin 9.2 g/dL (11.5-15.4); Mean Corpuscular HGB Conc 31.8 g/dL (31.6-35.5); Mean Corpuscular Hemoglobin 33.7 pg (28.0-33.3); Mean Corpuscular Volume 105.9 fL (83.0-100.0); Mean Platelet Volume 10.2 fL (9.4-12.4); Monocytes # 0.4 K/mcL (0.0-1.3); Nucleated Red Blood Cells 1.1 /100 WBC (0); Platelet Count 138 K/mcL (140-400); Red Blood Count 2.73 M/mcL (3.82-4.97); Red Cell Distribution Width 16.2 % (11.5-14.5); White Blood Count 5.2 K/mcL (4.3-11.1)
[2020-03-22 00:55] LABS: Alanine Aminotransferase 116 Units/L (7-52); Albumin 2.6 g/dL (3.5-5.7); Albumin/Globulin Ratio 0.7 (1.1-2.2); Alkaline Phosphatase 39 Units/L (34-104); Aspartate Amino Transferase 126 Units/L (13-39); BUN/Creatinine Ratio 54 (6-26); Bilirubin,Total 0.4 mg/dL (0.3-1.0); Blood Urea Nitrogen 14 mg/dL (6-20); Calcium 7.9 mg/dL (8.6-10.3); Carbon Dioxide 23 mEq/L (23-29); Chloride 102 mEq/L (98-107); Globulin 3.5 g/dL (2.4-3.5); Glucose 94 mg/dL (70-105); Osmolality,Calculated 282 (280-300); Potassium 3.2 mEq/L (3.5-5.1); Sodium 136 mEq/L (136-145); Total Protein 6.1 g/dL (6.4-8.9); eGFR For African Americans > 60 (> 60); eGFR For Non-African Americans > 60 (> 60)
[2020-03-22 01:19] LABS: Anisocytosis 1+ (Not Present); Platelet Estimate Normal (Normal); Toxic Granulation Present (Not Present)
[2020-03-22 01:20] LABS: Lymphocytes # 0.4 K/mcL (0.6-4.6); Neutrophils # 4.2 K/mcL (1.6-8.9)
[2020-03-22 05:01] LABS: Bacteria,Urine Few per hpf (None-Few); Bilirubin,Urine Negative (Negative); Blood,Urine Small (Negative); Clarity,Urine Clear (Clear); Color,Urine Yellow (Yellow); Glucose,Urine (UA) Normal (Normal); Ketones,Urine 40 mg/dL (Negative); Leukocyte Esterase,Urine Small (Negative); Mucus,Urine Many per lpf (None-Few); Nitrite,Urine Negative (Negative); Protein,Urine 50 mg/dL (Neg-Trace); Specific Gravity,Urine 1.027 (1.010-1.025); Squamous Epithelial Cell,Urine Few per hpf (None-Few); Urobilinogen,Urine Normal (Normal)
[2020-03-22] MEDS ORDERED: Potassium Chloride 20 MEQ, Lidocaine 1% 2 ML in 0.9 % Sodium Chloride 250 ML IVPB ONE (08:20)
[2020-03-22] MEDS: Pantoprazole 40 MG VIAL IVP SCH (09:12)
[2020-03-22] MEDS: lamoTRIgine 100 MG TABLET PO SCH ×2 (09:13→21:14)
[2020-03-22] MEDS: Furosemide 20 MG TABLET PO SCH (09:13)
[2020-03-22] MEDS: Folic Acid 1 MG TABLET PO SCH (09:14)
[2020-03-22] MEDS: levoFLOXacin 750 MG/150 ML 750 MG/150 ML BAG IVPB SCH (09:14)
[2020-03-22] MEDS: FLUoxetine 20 MG CAPSULE PO SCH (09:14)
[2020-03-22] MEDS: ARMODAFINIL 150 MG PO SCH (09:16)
[2020-03-22] MEDS: (Valbenazine Tosylate [Ingrezza] 80 MG) PO SCH (09:16)
[2020-03-22 10:26] LABS: ANA IgG by ELISA DETECTED (None Detected); F-Actin (sm muscle) Ab IgG 15 Units (0-19)
[2020-03-22] MEDS: Ipratropium/Albuterol Neb 3 ML IH SCH ×3 (11:42→21:31)
[2020-03-22] MEDS: Ondansetron 4 MG/2 ML VIAL IVP PRN (21:14)
[2020-03-22] MEDS: 0.9 % Sodium Chloride 1,000 ML IVC SCH (21:14)
[2020-03-22 23:00] LABS: ANA HEp-2 IgG IFA DETECTED (<1:80); Anti Nuclear Ab Pattern SPECKLED
[2020-03-23 02:48] LABS: Hematocrit 30.5 % (35.3-44.9); Hemoglobin 9.6 g/dL (11.5-15.4); Mean Corpuscular HGB Conc 31.5 g/dL (31.6-35.5); Mean Corpuscular Hemoglobin 33.2 pg (28.0-33.3); Mean Corpuscular Volume 105.5 fL (83.0-100.0); Mean Platelet Volume 10.6 fL (9.4-12.4); Nucleated Red Blood Cells 1.1 /100 WBC (0); Platelet Count 136 K/mcL (140-400); Red Blood Count 2.89 M/mcL (3.82-4.97); Red Cell Distribution Width 16.3 % (11.5-14.5); White Blood Count 5.6 K/mcL (4.3-11.1)
[2020-03-23 03:06] LABS: Alanine Aminotransferase 111 Units/L (7-52); Albumin 2.6 g/dL (3.5-5.7); Albumin/Globulin Ratio 0.7 (1.1-2.2); Alkaline Phosphatase 39 Units/L (34-104); Aspartate Amino Transferase 104 Units/L (13-39); BUN/Creatinine Ratio 54 (6-26); Bilirubin,Total 0.3 mg/dL (0.3-1.0); Blood Urea Nitrogen 13 mg/dL (6-20); Carbon Dioxide 22 mEq/L (23-29); Chloride 102 mEq/L (98-107); Globulin 3.5 g/dL (2.4-3.5); Glucose 89 mg/dL (70-105); Osmolality,Calculated 284 (280-300); Potassium 3.4 mEq/L (3.5-5.1); Sodium 137 mEq/L (136-145); Total Protein 6.1 g/dL (6.4-8.9); eGFR For African Americans > 60 (> 60); eGFR For Non-African Americans > 60 (> 60)
[2020-03-23 03:09] LABS: Anisocytosis 1+ (Not Present); Lymphocytes # 0.6 K/mcL (0.6-4.6); Monocytes # 0.1 K/mcL (0.0-1.3); Neutrophils # 4.7 K/mcL (1.6-8.9); Platelet Estimate Slight Decrease (Normal); Toxic Granulation Present (Not Present)
[2020-03-23] MEDS: Ipratropium/Albuterol Neb 3 ML IH SCH ×4 (04:32→21:43)
[2020-03-23] MEDS ORDERED: *HR* Midazolam HCl 2 MG/2 ML VIAL IVP PRN (07:48)
[2020-03-23] MEDS ORDERED: *HR* HYDROmorphone PF 0.5 MG/0.5 ML SYRINGE IVP PRN (07:48)
[2020-03-23] MEDS ORDERED: *HR* Meperidine 25 MG/ML SYRINGE IVP PRN (07:48)
[2020-03-23] MEDS ORDERED: *HR* FentaNYL (PF) 100 MCG/2 ML VIAL IVP PRN (07:48)
[2020-03-23] MEDS ORDERED: Ondansetron 4 MG/2 ML VIAL ONE (07:51)
[2020-03-23] MEDS ORDERED: *HR* Propofol 200 MG/20 ML VIAL IVP ONE (07:51)
[2020-03-23] MEDS ORDERED: *HR* Rocuronium Bromide 50 MG/5 ML VIAL ONE ×2 (07:51→09:22)
[2020-03-23] MEDS ORDERED: Lidocaine -MPF 2% 2 ML VIAL ONE (07:51)
[2020-03-23] MEDS ORDERED: Dexamethasone 4 MG/ML VIAL ONE (07:51)
[2020-03-23] MEDS ORDERED: Acetaminophen IV 1,000 MG/100 ML BAG IVPB ONE (08:10)
[2020-03-23] MEDS ORDERED: Potassium Chloride 20 MEQ, Lidocaine 1% 2 ML in 0.9 % Sodium Chloride 250 ML IVPB ONE ×2 (08:16→12:49)
[2020-03-23] MEDS ORDERED: Bupivacaine 0.5%-Epi 1:200,000 50 ML VIAL ONE (08:43)
[2020-03-23] MEDS ORDERED: Isovue-300 50ML VIAL ONE (08:44)
[2020-03-23] MEDS: levoFLOXacin 750 MG/150 ML 750 MG/150 ML BAG IVPB SCH (08:48)
[2020-03-23] MEDS ORDERED: *HR* PHENYLEPHRINE 1,000 MCG/10 ML SYRINGE IVP ONE ×2 (09:08→09:28)
[2020-03-23] MEDS ORDERED: *HR* Vasopressin 20 UNIT/ML VIAL ONE (09:32)
[2020-03-23] MEDS ORDERED: Sugammadex Sodium 200 MG/2 ML VIAL IV ONE (09:45)
[2020-03-23] MEDS ORDERED: *HR* HYDROMORPHONE 2 MG/ML VIAL ONE (09:47)
[2020-03-23] MEDS ORDERED: tiZANidine 4 MG TABLET PO PRN (12:49)
[2020-03-23] MEDS ORDERED: *HR* OxyCODONE/APAP 5/325 TABLET PO PRN (12:49)
[2020-03-23] MEDS ORDERED: Ondansetron 4 MG/2 ML VIAL IVP PRN (12:49)
[2020-03-23] MEDS: Ketorolac 15 MG/ML VIAL IVP SCH ×3 (14:22→23:46)
[2020-03-23] MEDS ORDERED: Perflutren Lipid Microsphere 1.3 ML in 0.9 % Sodium Chloride 8.7 ML IVP PRN (15:19)
[2020-03-23] MEDS: lamoTRIgine 100 MG TABLET PO SCH (20:25)
[2020-03-24 01:34] LABS: Alanine Aminotransferase 113 Units/L (7-52); Albumin 2.6 g/dL (3.5-5.7); Albumin/Globulin Ratio 0.8 (1.1-2.2); Alkaline Phosphatase 40 Units/L (34-104); Aspartate Amino Transferase 121 Units/L (13-39); BUN/Creatinine Ratio 52 (6-26); Bilirubin,Total 0.4 mg/dL (0.3-1.0); Blood Urea Nitrogen 16 mg/dL (6-20); Calcium 7.8 mg/dL (8.6-10.3); Carbon Dioxide 20 mEq/L (23-29); Chloride 104 mEq/L (98-107); Globulin 3.2 g/dL (2.4-3.5); Glucose 90 mg/dL (70-105); Osmolality,Calculated 287 (280-300); Potassium 3.9 mEq/L (3.5-5.1); Sodium 138 mEq/L (136-145); Total Protein 5.8 g/dL (6.4-8.9); eGFR For African Americans > 60 (> 60); eGFR For Non-African Americans > 60 (> 60)
[2020-03-24 03:19] LABS: Hematocrit 28.9 % (35.3-44.9); Hemoglobin 9.1 g/dL (11.5-15.4); Mean Corpuscular HGB Conc 31.5 g/dL (31.6-35.5); Mean Corpuscular Hemoglobin 34.1 pg (28.0-33.3); Mean Corpuscular Volume 108.2 fL (83.0-100.0); Mean Platelet Volume 11.4 fL (9.4-12.4); Nucleated Red Blood Cells 1.5 /100 WBC (0); Platelet Count 113 K/mcL (140-400); Red Blood Count 2.67 M/mcL (3.82-4.97); Red Cell Distribution Width 16.7 % (11.5-14.5); White Blood Count 4.6 K/mcL (4.3-11.1)
[2020-03-24] MEDS: Ipratropium/Albuterol Neb 3 ML IH SCH ×4 (03:29→22:11)
[2020-03-24 04:07] LABS: Anisocytosis 1+ (Not Present); Lymphocytes # 0.3 K/mcL (0.6-4.6); Monocytes # 0.1 K/mcL (0.0-1.3); Neutrophils # 4.1 K/mcL (1.6-8.9); Platelet Estimate Slight Decrease (Normal); Toxic Granulation Present (Not Present)
[2020-03-24] MEDS: Ketorolac 15 MG/ML VIAL IVP SCH ×2 (05:52→13:37)
[2020-03-24] MEDS: Furosemide 20 MG TABLET PO SCH ×2 (08:35→21:49)
[2020-03-24] MEDS: FLUoxetine 20 MG CAPSULE PO SCH ×2 (08:35→21:50)
[2020-03-24] MEDS: lamoTRIgine 100 MG TABLET PO SCH ×3 (08:35→21:49)
[2020-03-24] MEDS: Folic Acid 1 MG TABLET PO SCH ×2 (08:35→21:49)
[2020-03-24] MEDS: levoFLOXacin 750 MG/150 ML 750 MG/150 ML BAG IVPB SCH (08:37)
[2020-03-24] MEDS: ARMODAFINIL 150 MG PO SCH ×2 (08:38→21:50)
[2020-03-24] MEDS: (Valbenazine Tosylate [Ingrezza] 80 MG) PO SCH ×2 (08:38→21:50)
[2020-03-24] MEDS ORDERED: Pantoprazole 40 MG VIAL IVP SCH (09:00)
[2020-03-24] MEDS: Pantoprazole 40 MG VIAL IVP SCH (21:50)
[2020-03-24] MEDS: 0.9 % Sodium Chloride 1,000 ML IVC SCH ×2 (22:18→22:19)
[2020-03-25] MEDS: Ipratropium/Albuterol Neb 3 ML IH SCH ×4 (03:45→21:59)
[2020-03-25] MEDS: Furosemide 20 MG TABLET PO SCH (08:06)
[2020-03-25] MEDS: Folic Acid 1 MG TABLET PO SCH (08:07)
[2020-03-25] MEDS: lamoTRIgine 100 MG TABLET PO SCH ×3 (08:07→22:59)
[2020-03-25] MEDS: levoFLOXacin 750 MG/150 ML 750 MG/150 ML BAG IVPB SCH (08:08)
[2020-03-25] MEDS: FLUoxetine 20 MG CAPSULE PO SCH (08:08)
[2020-03-25] MEDS: ARMODAFINIL 150 MG PO SCH (08:09)
[2020-03-25] MEDS: (Valbenazine Tosylate [Ingrezza] 80 MG) PO SCH (08:09)
[2020-03-25 12:56] LABS: Alanine Aminotransferase 104 Units/L (7-52); Albumin 2.7 g/dL (3.5-5.7); Albumin/Globulin Ratio 0.9 (1.1-2.2); Alkaline Phosphatase 42 Units/L (34-104); Aspartate Amino Transferase 121 Units/L (13-39); BUN/Creatinine Ratio 46 (6-26); Bilirubin,Total 0.4 mg/dL (0.3-1.0); Blood Urea Nitrogen 16 mg/dL (6-20); Carbon Dioxide 22 mEq/L (23-29); Chloride 103 mEq/L (98-107); Glucose 73 mg/dL (70-105); Osmolality,Calculated 286 (280-300); Potassium 3.6 mEq/L (3.5-5.1); Sodium 138 mEq/L (136-145); Total Protein 5.7 g/dL (6.4-8.9); eGFR For African Americans > 60 (> 60); eGFR For Non-African Americans > 60 (> 60)
[2020-03-25] MEDS: Piperacillin/Tazobactam 3.375 GM in 0.9 % Sodium Chloride Mini Bag 100 ML IVPB SCH ×2 (13:06→21:16)
[2020-03-25] MEDS ORDERED: 0.9 % Sodium Chloride 1,000 ML IVC SCH ×2 (13:30→15:45)
[2020-03-25] MEDS ORDERED: 0.9 % Sodium Chloride 1,000 ML ONE (13:35)
[2020-03-25] MEDS: 0.9 % Sodium Chloride 500 ML IVC SCH (13:52)
[2020-03-25 13:57] LABS: VBG HCO3 24 mEq/L (21-27); VBG PCO2 35 mmHg (41-51); VBG PH 7.44 pH Units (7.32-7.42); VBG PO2 114 mmHg (25-50)
[2020-03-25] MEDS ORDERED: Ibuprofen 400 MG TABLET PO PRN (17:08)
[2020-03-25 17:56] LABS: Immature Granulocytes % 8.4 % (0-4); Lymphocytes % 18.4 %; Red Cell Distribution Width 17.2 % (11.5-14.5)
[2020-03-25 17:59] LABS: Basophils # 0.1 K/mcL (0.0-0.2); Basophils % 1.7 %; Hematocrit 25.3 % (35.3-44.9); Immature Platelets 6.5 % (1.1-6.1); Lymphocytes # 0.8 K/mcL (0.6-4.6); Mean Corpuscular HGB Conc 31.6 g/dL (31.6-35.5); Mean Corpuscular Hemoglobin 34.5 pg (28.0-33.3); Mean Corpuscular Volume 109.1 fL (83.0-100.0); Mean Platelet Volume 11.2 fL (9.4-12.4); Monocytes # 0.3 K/mcL (0.0-1.3); Monocytes % 6.9 %; Neutrophils # 2.7 K/mcL (1.6-8.9); Red Blood Count 2.32 M/mcL (3.82-4.97); Segmented Neutrophils % 64.6 %; White Blood Count 4.2 K/mcL (4.3-11.1)
[2020-03-25] MEDS ORDERED: 0.9 % Sodium Chloride 500 ML IV ONE (18:11)
[2020-03-25 18:23] LABS: Platelet Count 83 K/mcL (140-400)
[2020-03-25 18:25] LABS: Platelet Estimate Slight Decrease (Normal)
[2020-03-25] MEDS ORDERED: 0.9 % Sodium Chloride 1,000 ML IV ONE ×2 (19:29→20:00)
[2020-03-25] MEDS ORDERED: Ringers Solution, Lactated 500 ML IVC ONE (20:45)
[2020-03-25] MEDS ORDERED: Albumin Human 5% 12.5 GM/250 ML IV.SOLN IVPB ONE (20:48)
[2020-03-25] MEDS: Ringers Solution, Lactated 1,000 ML IVC SCH (21:32)
[2020-03-26 00:19] LABS: Red Cell Distribution Width 17.2 % (11.5-14.5)
[2020-03-26 00:20] LABS: Hematocrit 26.5 % (35.3-44.9); Hemoglobin 8.1 g/dL (11.5-15.4); Immature Platelets 7.9 % (1.1-6.1); Mean Corpuscular HGB Conc 30.6 g/dL (31.6-35.5); Mean Corpuscular Hemoglobin 33.3 pg (28.0-33.3); Mean Corpuscular Volume 109.1 fL (83.0-100.0); Mean Platelet Volume 11.7 fL (9.4-12.4); Nucleated Red Blood Cells 1.1 /100 WBC (0); Red Blood Count 2.43 M/mcL (3.82-4.97); White Blood Count 4.4 K/mcL (4.3-11.1)
[2020-03-26 00:21] LABS: Platelet Count 70 K/mcL (140-400)
[2020-03-26 00:34] LABS: Alanine Aminotransferase 93 Units/L (7-52); Albumin 2.5 g/dL (3.5-5.7); Albumin/Globulin Ratio 0.9 (1.1-2.2); Alkaline Phosphatase 34 Units/L (34-104); Aspartate Amino Transferase 107 Units/L (13-39); BUN/Creatinine Ratio 45 (6-26); Bilirubin,Total 0.3 mg/dL (0.3-1.0); Blood Urea Nitrogen 15 mg/dL (6-20); Calcium 7.1 mg/dL (8.6-10.3); Carbon Dioxide 20 mEq/L (23-29); Chloride 108 mEq/L (98-107); Globulin 2.7 g/dL (2.4-3.5); Glucose 85 mg/dL (70-105); Osmolality,Calculated 290 (280-300); Potassium 3.4 mEq/L (3.5-5.1); Sodium 140 mEq/L (136-145); Total Protein 5.2 g/dL (6.4-8.9); eGFR For African Americans > 60 (> 60); eGFR For Non-African Americans > 60 (> 60)
[2020-03-26 00:48] LABS: Anisocytosis 1+ (Not Present); Lymphocytes # 0.5 K/mcL (0.6-4.6); Neutrophils # 3.5 K/mcL (1.6-8.9); Reactive Lymphocytes Present (Not Present); Toxic Granulation Present (Not Present)
[2020-03-26 00:49] LABS: Platelet Estimate Slight Decrease (Normal)
[2020-03-26] MEDS ORDERED: Acetaminophen IV 1,000 MG/100 ML BAG IVPB ONE (01:05)
[2020-03-26] MEDS ORDERED: Norepinephrine 4 MG/254 ML IV.SOLN IVC SCH (03:45)
[2020-03-26] MEDS ORDERED: Isovue-370 500 ML BOTTLE IVP ONE ×2 (04:00→05:26)
[2020-03-26] MEDS: Ipratropium/Albuterol Neb 3 ML IH SCH ×4 (04:08→21:17)
[2020-03-26] MEDS: Piperacillin/Tazobactam 3.375 GM in 0.9 % Sodium Chloride Mini Bag 100 ML IVPB SCH ×3 (05:33→19:42)
[2020-03-26] MEDS ORDERED: *HR* Enoxaparin 40 MG/0.4 ML SYRINGE SQ SCH (06:00)
[2020-03-26] MEDS: lamoTRIgine 100 MG TABLET PO SCH ×2 (07:57→19:42)
[2020-03-26] MEDS: FLUoxetine 20 MG CAPSULE PO SCH (07:57)
[2020-03-26] MEDS: Folic Acid 1 MG TABLET PO SCH (08:01)
[2020-03-26] MEDS: Ringers Solution, Lactated 1,000 ML IVC SCH (11:32)
[2020-03-26] MEDS ORDERED: Potassium Chloride Elixir 20 MEQ/15 ML UDC PO ONE (16:46)
[2020-03-26] MEDS ORDERED: Ondansetron 4 MG/2 ML VIAL IVP PRN (18:25)
[2020-03-27] MEDS: Ipratropium/Albuterol Neb 3 ML IH SCH ×4 (03:39→21:22)
[2020-03-27 04:18] LABS: Hematocrit 24.8 % (35.3-44.9); Hemoglobin 7.8 g/dL (11.5-15.4); Mean Corpuscular HGB Conc 31.5 g/dL (31.6-35.5); Red Cell Distribution Width 17.2 % (11.5-14.5)
[2020-03-27 04:20] LABS: Immature Platelets 9.4 % (1.1-6.1); Mean Corpuscular Hemoglobin 33.5 pg (28.0-33.3); Mean Corpuscular Volume 106.4 fL (83.0-100.0); Red Blood Count 2.33 M/mcL (3.82-4.97); White Blood Count 5.8 K/mcL (4.3-11.1)
[2020-03-27 04:29] LABS: BUN/Creatinine Ratio 50 (6-26); Blood Urea Nitrogen 11 mg/dL (6-20); Calcium 7.7 mg/dL (8.6-10.3); Carbon Dioxide 23 mEq/L (23-29); Chloride 107 mEq/L (98-107); Glucose 88 mg/dL (70-105); Osmolality,Calculated 295 (280-300); Potassium 3.1 mEq/L (3.5-5.1); Sodium 143 mEq/L (136-145); eGFR For African Americans > 60 (> 60); eGFR For Non-African Americans > 60 (> 60)
[2020-03-27 04:35] LABS: Platelet Count 57 K/mcL (140-400)
[2020-03-27] MEDS ORDERED: Potassium Chloride Elixir 20 MEQ/15 ML UDC PO ONE (04:44)
[2020-03-27] MEDS: *HR* Fondaparinux 2.5 MG/0.5 ML SYRINGE SQ SCH (05:11)
[2020-03-27] MEDS: Piperacillin/Tazobactam 3.375 GM in 0.9 % Sodium Chloride Mini Bag 100 ML IVPB SCH ×3 (05:11→21:10)
[2020-03-27] MEDS ORDERED: *HR* Fondaparinux 2.5 MG/0.5 ML SYRINGE SQ SCH (06:00)
[2020-03-27] MEDS: Norepinephrine 4 MG/254 ML IV.SOLN IVC SCH ×2 (06:33→20:34)
[2020-03-27] MEDS: lamoTRIgine 100 MG TABLET PO SCH ×3 (08:33→21:11)
[2020-03-27] MEDS: Folic Acid 1 MG TABLET PO SCH ×2 (08:33→15:44)
[2020-03-27] MEDS: FLUoxetine 20 MG CAPSULE PO SCH ×2 (08:33→15:45)
[2020-03-27 10:42] LABS: ABG Base Excess -1 mEq/L (-2 to 3); ABG HCO3 24 mEq/L (21-27); ABG Oxygen Saturation 96 % (95-98); ABG PCO2 38 mmHg (35-45); ABG PH 7.41 pH Units (7.32-7.45); ABG PO2 84 mmHg (85-104); ABG TCO2 25 mEq/L (20-26)
[2020-03-27 13:46] LABS: Albumin 2.8 g/dL (3.5-5.7); Bilirubin,Direct 0.1 mg/dL (0.0-0.2); Bilirubin,Indirect 0.2 mg/dL (0.0-1.0); Bilirubin,Total 0.3 mg/dL (0.3-1.0); Globulin 2.9 g/dL (2.4-3.5); Total Protein 5.7 g/dL (6.4-8.9)
[2020-03-27 14:24] LABS: Hemoglobin 8.2 g/dL (11.5-15.4); Mean Corpuscular HGB Conc 31.5 g/dL (31.6-35.5); Nucleated Red Blood Cells 1.1 /100 WBC (0)
[2020-03-27 14:26] LABS: Immature Platelets 14.2 % (1.1-6.1); Mean Corpuscular Volume 107.9 fL (83.0-100.0); Mean Platelet Volume 13.4 fL (9.4-12.4); Red Blood Count 2.41 M/mcL (3.82-4.97); Red Cell Distribution Width 17.4 % (11.5-14.5); White Blood Count 6.6 K/mcL (4.3-11.1)
[2020-03-27 14:35] LABS: Platelet Count 54 K/mcL (140-400)
[2020-03-27 15:12] LABS: Basophils # 0.1 K/mcL (0.0-0.2); Lymphocytes # 0.5 K/mcL (0.6-4.6); Monocytes # 0.4 K/mcL (0.0-1.3); Neutrophils # 5.3 K/mcL (1.6-8.9); Platelet Estimate Decreased (Normal); Reactive Lymphocytes Present (Not Present)
[2020-03-28] MEDS: Piperacillin/Tazobactam 3.375 GM in 0.9 % Sodium Chloride Mini Bag 100 ML IVPB SCH ×3 (03:23→20:41)
[2020-03-28] MEDS: Ipratropium/Albuterol Neb 3 ML IH SCH ×4 (03:50→22:39)
[2020-03-28 05:44] LABS: VBG Ionized Calcium 1.05 mmol/L (1.15-1.35)
[2020-03-28 05:52] LABS: BUN/Creatinine Ratio 52 (6-26); Blood Urea Nitrogen 12 mg/dL (6-20); Calcium 8.3 mg/dL (8.6-10.3); Carbon Dioxide 25 mEq/L (23-29); Chloride 107 mEq/L (98-107); Glucose 109 mg/dL (70-105); Osmolality,Calculated 300 (280-300); Potassium 3.4 mEq/L (3.5-5.1); Sodium 145 mEq/L (136-145); eGFR For African Americans > 60 (> 60); eGFR For Non-African Americans > 60 (> 60)
[2020-03-28] MEDS: *HR* Fondaparinux 2.5 MG/0.5 ML SYRINGE SQ SCH (06:07)
[2020-03-28 07:12] LABS: Hematocrit 27.1 % (35.3-44.9); Hemoglobin 8.6 g/dL (11.5-15.4); Immature Platelets 14.4 % (1.1-6.1); Mean Corpuscular HGB Conc 31.7 g/dL (31.6-35.5); Mean Corpuscular Hemoglobin 33.7 pg (28.0-33.3); Mean Corpuscular Volume 106.3 fL (83.0-100.0); Mean Platelet Volume 12.9 fL (9.4-12.4); Red Blood Count 2.55 M/mcL (3.82-4.97); Red Cell Distribution Width 17.1 % (11.5-14.5); White Blood Count 8.4 K/mcL (4.3-11.1)
[2020-03-28 07:26] LABS: Hepatitis B Surface Antigen Nonreactive (Nonreactive)
[2020-03-28] MEDS: lamoTRIgine 100 MG TABLET PO SCH (07:49)
[2020-03-28] MEDS: FLUoxetine 20 MG CAPSULE PO SCH (07:49)
[2020-03-28] MEDS: Folic Acid 1 MG TABLET PO SCH (07:49)
[2020-03-28] MEDS: Norepinephrine 4 MG/254 ML IV.SOLN IVC SCH (07:50)
[2020-03-28 07:55] LABS: Hepatitis B Core IgM Nonreactive (Nonreactive); Hepatitis C Virus Antibody Nonreactive (Nonreactive)
[2020-03-28] MEDS ORDERED: Ondansetron 4 MG/2 ML VIAL IVP PRN (09:57)
[2020-03-28] MEDS ORDERED: Norepinephrine 4 MG/254 ML IV.SOLN IVC SCH (09:57)
[2020-03-28] MEDS: 0.9 % Sodium Chloride 500 ML IVC SCH ×3 (17:18→17:23)
[2020-03-28] MEDS: Ringers Solution, Lactated 1,000 ML IVC SCH (17:24)
[2020-03-29] MEDS: lamoTRIgine 100 MG TABLET PO SCH ×3 (01:16→21:06)
[2020-03-29] MEDS: Piperacillin/Tazobactam 3.375 GM in 0.9 % Sodium Chloride Mini Bag 100 ML IVPB SCH ×2 (03:07→12:36)
[2020-03-29] MEDS: Ipratropium/Albuterol Neb 3 ML IH SCH ×4 (03:37→22:51)
[2020-03-29 05:02] LABS: BUN/Creatinine Ratio 57 (6-26); Blood Urea Nitrogen 13 mg/dL (6-20); Calcium 8.3 mg/dL (8.6-10.3); Carbon Dioxide 27 mEq/L (23-29); Chloride 107 mEq/L (98-107); Glucose 101 mg/dL (70-105); Osmolality,Calculated 302 (280-300); Potassium 3.6 mEq/L (3.5-5.1); Sodium 146 mEq/L (136-145); eGFR For African Americans > 60 (> 60); eGFR For Non-African Americans > 60 (> 60)
[2020-03-29 05:13] LABS: Hemoglobin 8.7 g/dL (11.5-15.4)
[2020-03-29 05:15] LABS: Hematocrit 27.8 % (35.3-44.9); Immature Platelets 14.1 % (1.1-6.1); Mean Corpuscular HGB Conc 31.3 g/dL (31.6-35.5); Mean Corpuscular Volume 108.6 fL (83.0-100.0); Mean Platelet Volume 13.2 fL (9.4-12.4); Red Blood Count 2.56 M/mcL (3.82-4.97); Red Cell Distribution Width 17.7 % (11.5-14.5); White Blood Count 9.2 K/mcL (4.3-11.1)
[2020-03-29] MEDS: Folic Acid 1 MG TABLET PO SCH (07:54)
[2020-03-29] MEDS: FLUoxetine 20 MG CAPSULE PO SCH (07:54)
[2020-03-29] MEDS: *HR* Fondaparinux 2.5 MG/0.5 ML SYRINGE SQ SCH (08:01)
[2020-03-29] MEDS: 0.45 % Sodium Chloride w/KCl 20 MEQ/1,000 ML MLS IVC SCH (16:07)
[2020-03-29 17:34] LABS: Hepatitis A Antibody IgM Nonreactive (Nonreactive)
[2020-03-30] MEDS: Ipratropium/Albuterol Neb 3 ML IH SCH ×4 (03:24→22:12)
[2020-03-30] MEDS: 0.45 % Sodium Chloride w/KCl 20 MEQ/1,000 ML MLS IVC SCH (05:59)
[2020-03-30] MEDS: *HR* Fondaparinux 2.5 MG/0.5 ML SYRINGE SQ SCH (06:06)
[2020-03-30] MEDS: lamoTRIgine 100 MG TABLET PO SCH (07:46)
[2020-03-30] MEDS: Folic Acid 1 MG TABLET PO SCH (07:46)
[2020-03-30] MEDS: FLUoxetine 20 MG CAPSULE PO SCH (07:47)
[2020-03-30 15:17] LABS: Hematocrit 28.5 % (35.3-44.9); Hemoglobin 8.9 g/dL (11.5-15.4); Immature Platelets 15.3 % (1.1-6.1); Mean Corpuscular HGB Conc 31.2 g/dL (31.6-35.5); Mean Corpuscular Hemoglobin 34.1 pg (28.0-33.3); Mean Corpuscular Volume 109.2 fL (83.0-100.0); Mean Platelet Volume 13.4 fL (9.4-12.4); Red Blood Count 2.61 M/mcL (3.82-4.97); Red Cell Distribution Width 17.6 % (11.5-14.5)
[2020-03-30 15:48] LABS: BUN/Creatinine Ratio 48 (6-26); Blood Urea Nitrogen 15 mg/dL (6-20); Calcium 8.3 mg/dL (8.6-10.3); Carbon Dioxide 18 mEq/L (23-29); Chloride 110 mEq/L (98-107); Glucose 70 mg/dL (70-105); Osmolality,Calculated 305 (280-300); Potassium 4.7 mEq/L (3.5-5.1); Sodium 148 mEq/L (136-145); eGFR For African Americans > 60 (> 60); eGFR For Non-African Americans > 60 (> 60)
[2020-03-30 19:38] VITALS: BP 115/73
== END 2020-03-30 21:02 | disposition expired | DRG 987 ==
LOC: 3NENU → SUATTDRO 17:10 → 3ANU 03-23 17:17 → ICNU 03-26 03:12 → 3ANU 03-28 18:52
PROVIDERS: ADMIT Internal Medicine; ATTEND Internal Medicine
PROC: ENDOEBX (2020-03-21 12:55)